=== PATIENT | male | born 1955 | race Caucasian/White ===

== ENCOUNTER 2020-06-29 10:28 | Emergency (ER) | payer OTHER ==
[2020-06-29 10:36] VITALS: TEMP 98.3; BMI 25.0
[2020-06-29] MEDS ORDERED: FAMOTIDINE 20 MG TABLET PO ONE (11:35)
[2020-06-29] MEDS ORDERED: FAMOTIDINE 20 MG TABLET ONE (11:43)
[2020-06-29 11:54] LABS: BASO % 0.8 % (0-2.0); EOS % 1.2 % (0-4.5); HEMATOCRIT 40.5 % (35.4-49); HEMOGLOBIN 14.5 GM/dL (11.7-16.9); LYMPH % 14.5 % (8-40); MCH 33.3 pg (25.7-33.7); MCHC 35.8 g/dl (32.0-35.9); MEAN CELL VOLUME 93.1 fl (80-96); MONO % 5.9 % (3.8-10.2); NEUT % 77.6 % (42.8-82.8); PLATELET COUNT 258 K/MM3 (134-434); RBC 4.34 M/mm3 (4.00-5.60); RDW 12.7 % (11.9-15.9); WHITE BLOOD COUNT 8.4 K/mm3 (4.0-10.0)
[2020-06-29 12:15] LABS: CHLORIDE 108 mmol/L (98-107); SODIUM 138 mmol/L (136-145)
[2020-06-29 12:18] LABS: CALCIUM 9.7 mg/dL (8.5-10.1)
[2020-06-29 12:19] LABS: ALBUMIN 4.3 g/dl (3.4-5.0); ANION GAP 8 MMOL/L (8-16); BLOOD UREA NITROGEN 10.7 mg/dL (7-18); CO2 23 mmol/L (21-32); GLUCOSE,RANDOM 108 mg/dL (74-106)
[2020-06-29 12:22] LABS: CREATININE 0.9 mg/dL (0.55-1.3); SGOT/AST 18 U/L (15-37); SGPT/ALT 31 U/L (13-61)
[2020-06-29 12:23] LABS: BILIRUBIN,TOTAL 0.8 mg/dL (0.2-1); TOT PROT 7.7 g/dl (6.4-8.2)
[2020-06-29 12:25] LABS: ALK PHOS 105 U/L (45-117)
[2020-06-29 13:29] VITALS: BP 112/86; PULSE 83
== END 2020-06-29 13:36 | disposition home or self-care (01) ==
LOC: JER 10:28
DX: R07.9 Chest pain, unspecified (principal)
CPT/HCPCS: 36415; 71046-TC-FY; 80053; 84484; 85025; 93005; 93010; 99285-25